=== PATIENT | female | born 1985 | race Hispanic/Latino ===

== ENCOUNTER 2017-07-05 19:22 | Observation (INO) | payer OTHER ==
[~2017-07-05] VITALS: Ht 162.6 cm; Wt 85.3 kg
[2017-07-05 20:08] LABS: BASOPHILS # (AUTO) 0.1 (0.0-0.1); BASOPHILS % 0.5 % (0.0-1.0); EOSINOPHILS # (AUTO) 0.1 (0.0-0.4); EOSINOPHILS % 1.3 % (0.0-6.0); HEMATOCRIT 42.5 % (34.2-44.1); HEMOGLOBIN 14.2 g/dL (12.0-16.0); LYMPHOCYTES # (AUTO) 2.8 (1.0-3.2); LYMPHOCYTES % 28.9 % (18.0-39.1); MEAN CORPUSCULAR HEMOGLOBIN 30.8 pg (28-32); MEAN CORPUSCULAR HGB CONC 33.4 g/dL (31-35); MEAN CORPUSCULAR VOLUME 92.2 fL (81-99); MONOCYTES # (AUTO) 0.6 (0.2-0.8); MONOCYTES % 6.2 % (4.4-11.3); NEUTROPHILS % 62.8 % (38.7-80.0); PLATELET COUNT 251 x10e3/uL (140-360); RED BLOOD COUNT 4.61 x10e6/uL (3.6-5.1); RED CELL DISTRIBUTION WIDTH 12.7 % (11.7-14.4)
[2017-07-05 20:27] LABS: ALANINE AMINOTRANSFERASE 26 IU/L (0-55); ALBUMIN 4.3 g/dL (3.5-5.0); ALBUMIN/GLOBULIN RATIO 1.1 (0.8-2.0); ALKALINE PHOSPHATASE 71 IU/L (40-150); ANION GAP 15.7 mmol/L (8-16); BLOOD UREA NITROGEN 11 mg/dL (7-26); BUN/CREATININE RATIO 17 (6-25); CALCIUM 9.8 mg/dL (8.4-10.2); CARBON DIOXIDE 24 mmol/L (22-29); CHLORIDE 106 mmol/L (98-107); CREATININE, SERUM 0.66 mg/dL (0.57-1.11); EST GLOMERULAR FILTRATION RATE > 60 ML/MIN (60-); GLUCOSE 80 mg/dL (74-118); POTASSIUM 3.7 mmol/L (3.5-5.1); SODIUM 142 mmol/L (136-145)
[2017-07-05 21:02] LABS: BILIRUBIN,URINE NEGATIVE (NEGATIVE); CLARITY,URINE CLOUDY (CLEAR); COLOR,URINE YELLOW (YELLOW); KETONES,URINE NEGATIVE (NEGATIVE); LEUKOCYTE ESTERASE ,URINE 1+ (NEGATIVE); NITRITE,URINE NEGATIVE (NEGATIVE); URINE UROBILINOGEN 0.2 mg/dL (0.2 - 1)
[2017-07-05 21:04] LABS: PROTEIN,URINE DIPSTICK TRACE (NEGATIVE)
[2017-07-05 21:05] LABS: PREGNANCY TEST, URINE NEGATIVE (NEGATIVE)
[2017-07-05 21:22] LABS: BACTERIA,URINE MODERATE /HPF; EPITHELIAL CELLS,URINE FEW /LPF; RBC,URINE >50 /HPF (0-5)
[2017-07-06] MEDS ORDERED: KETOROLAC TROMETHAMINE 30 MG/ML VIAL IV STA (00:14)
[2017-07-06] MEDS ORDERED: ONDANSETRON HCL INJ 2 MG/ML VIAL IV STA (00:14)
[2017-07-06] MEDS ORDERED: CEFTRIAXONE SOD 1 GM VIAL IV STA (00:14)
[2017-07-06] MEDS ORDERED: SODIUM CHLORIDE 0.9% 1000ML 1,000 ML IV ONE (00:15)
--- NOTE | 2017-07-06 01:07 | Diagnostic Imaging Report ---
EXAM: CT Abdomen and Pelvis WITHOUT contrast INDICATION: Flank pain, renal stone COMPARISON: None. TECHNIQUE: Abdomen and pelvis were scanned utilizing a multidetector helical scanner from the lung base to the pubic symphysis without administration of IV contrast. Absence of intravenous contrast decreases sensitivity for detection of focal lesions and vascular pathology. Coronal and sagittal reformations were obtained. Stone protocol is performed. IV CONTRAST: None. ORAL CONTRAST: None RADIATION DOSE: Total DLP: 646.23 mGy*cm Estimated effective dose: (DLP x 0.015 x size factor) mSv COMPLICATIONS: None FINDINGS: LINES and TUBES: None. LOWER THORAX: Unremarkable HEPATOBILIARY: No focal hepatic lesions. No biliary ductal dilation. GALLBLADDER: There are cholecystectomy clips. SPLEEN: No splenomegaly. PANCREAS: No focal masses or ductal dilatation. ADRENALS: No adrenal nodules KIDNEYS/URETERS: Severe right hydronephrosis hyperdense bilateral renal extremities suggestive of nephrocalcinosis. 8 mm stone in the distal right ureter resulting in obstruction of the right renal collecting system. Multiple bilateral stones are visualized in the renal calyces ranging between 2 and 8 mm. GI TRACT: No abnormal distention, wall thickening, or evidence of bowel obstruction. Appendix is normal. PELVIC ORGANS/BLADDER: Unremarkable. LYMPH NODES: No lymphadenopathy. VESSELS: Unremarkable. PERITONEUM / RETROPERITONEUM: No free air or fluid. BONES: Unremarkable. SOFT TISSUES: Unremarkable. IMPRESSION: 1. Obstructive 8 mm stone in the distal right ureter just above the UVJ resulting in severe right hydronephrosis. 2. Additional bilateral nephrolithiasis are present as described above. Signed by: Dr. Junior Alvarez M.D. on 07/06/2017 1:03 AM
[2017-07-06] MEDS ORDERED: HYDROMORPHONE 1MG/1ML INJ IV PRN (03:00)
[2017-07-06] MEDS ORDERED: ONDANSETRON HCL INJ 2 MG/ML VIAL IV PRN (03:00)
[2017-07-06] MEDS ORDERED: ACETAMINOPHEN 325 MG TAB PO PRN (03:00)
[2017-07-06] MEDS ORDERED: CEFTRIAXONE SOD 1 GM VIAL IV SCH (03:00)
[2017-07-06] MEDS: SODIUM CHLORIDE 0.9% 1000ML 1,000 ML IV SCH ×2 (03:26→10:54)
[2017-07-06 03:45] VITALS: BP 96/58
[2017-07-06 04:02] VITALS: BP 101/58
[2017-07-06 04:03] VITALS: BP 101/58
[2017-07-06 07:00] VITALS: BP 102/62
--- NOTE | 2017-07-06 07:43 | Consultation ---
DATE OF CONSULTATION: July 06, 2017 REASON FOR CONSULTATION: Right renal stone, 8 mm. HISTORY OF PRESENT ILLNESS: Mrs. Lakhani is a 32-year-old female with no prior history of stones admitted with 10/10 right-sided severe flank pain. No fevers. No chills. Positive nausea. No vomiting. PAST MEDICAL HISTORY: Denied. MEDICATIONS: Please see MAR. ALLERGIES: NKDA. SOCIAL HISTORY: Nonsmoker and nondrinker. FAMILY HISTORY: Denied urologic stones or malignancies. REVIEW OF SYSTEMS: Noncontributory and positive to problems as mentioned above. PHYSICAL EXAMINATION GENERAL: A young female in no acute distress. VITALS: Temperature 97.4, pulse 70, respirations 18, blood pressure 101/88. HEENT: Sclerae anicteric. NECK: Supple. BACK: Without costovertebral angle tenderness bilaterally. ABDOMEN: Soft. It is nontender. It is nondistended. There is no palpable mass. No palpable hernias. No palpable groin lymphadenopathy. : Normal female external genitalia. EXTREMITIES: Without edema. Moves all 4 extremities. PSYCH: Alert and mood appropriate. SKIN: Intact. Normal color. PERTINENT LABORATORY DATA: CT scan with a 8 mm right distal ureteral stone. Right-sided hydronephrosis, severe. Urinalysis with 10-20 whites and 50-100 reds. Sodium 142, potassium 3.3, chloride 106, bicarb 24, BUN 11, creatinine 0.66, glucose 80. Hemoglobin 14, hematocrit 42, platelet count of 215,000, and white cell count 8590. IMPRESSION 1. Right ureteral stone. 2. Urinary tract infection. 3. Microscopic hematuria. 4. Renal colic. 5. Hydronephrosis. 6. Hypotension. PLAN: Supportive care. The patient will need a stent for likely obstructed infected system. Thank you for allowing me to participate in the care of your patient. Will be following along with you. Job#: [id number] LORIE
[2017-07-06] MEDS ORDERED: IOPAMIDOL 610MG/1ML 300 MG/ML VIAL IV ONE (08:15)
--- NOTE | 2017-07-06 10:22 | Operative Report ---
DATE OF PROCEDURE: July 06, 2017 PREOPERATIVE DIAGNOSES 1. Microscopic hematuria. 2. Right-sided hydronephrosis. POSTOPERATIVE DIAGNOSES 1. Microscopic hematuria. 2. Right-sided hydronephrosis. PROCEDURES 1. Cystourethroscopy with left ureteral catheterization. 2. Left retrograde pyelogram (entirely separate procedure for microscopic hematuria). 3. Cystourethroscopy with placement of right indwelling stent (entirely separate procedure for right hydronephrosis). 4. Supervision of fluoroscopy. 5. Interpretation of retrograde pyelography. ANESTHESIA: General. ESTIMATED BLOOD LOSS: Minimal. COMPLICATIONS: None. INDICATIONS FOR PROCEDURE: Ms. Lakhani is a 32-year-old female with obstructed and infected stone. She and I had a long discussion about alternatives, risks and benefits including doing nothing, stent placement and nephrostomy. She voiced understanding of the options, alternatives, risks and benefits. She voiced understanding that the stent is a temporary indwelling device, and it was must be removed. Failure to do so could lead to encrustation, infection, inflammation, atrophy, loss of the kidney, and even . She elected to proceed. PROCEDURE IN DETAIL: After informed consent was obtained, the patient was taken to the operating suite and placed supine on the operating table and underwent general anesthesia by the anesthesia service. She was then placed in the dorsal lithotomy position and sterilely prepped and draped in the standard fashion for cystoscopy. A 22.5-Nauruan cystoscope was inserted per urethra. It was noted to pass. The bladder revealed no tumors and no stones. Both ureteral orifices were within normal anatomic location and position. Bilateral retrograde pyelograms were performed,. The left was normal. The right revealed a very large 8 mm distal ureteral calculus with proximal hydronephrosis. A right ureteral stent was deployed with the coil in the renal pelvis and a coil in the bladder. The patient's bladder was drained. She was awakened from anesthesia and transported to the recovery room in excellent condition. SUPERVISION OF FLUOROSCOPY, INTERPRETATION OF RETROGRADE URETERAL PYELOGRAPHY: I was present throughout the entire procedure and I supervised the use of fluoroscopy. There was no radiologist present at any time during this procedure. Attention was turned toward the left and right ureteral orifices, catheterized with a 5-Nauruan open-ended catheter. Retrograde pyelogram was performed revealing left-sided ureter, delicate pelviceal systems. A right-sided 8 mm distal ureteral calculus and proximal hydronephrosis. Postoperative views on the right side revealed the stent in good position. IMPRESSION 1. An 8 mm right distal ureteral calculus. 2. Right hydronephrosis. 3. Right ureteral stent in adequate position. 4. Normal left retrograde pyelograms. Job#: [id number] RI
[2017-07-06 12:00] VITALS: BP 99/55
--- NOTE | 2017-07-06 12:42 | History and Physical ---
CHIEF COMPLAINT: Abdominal pain. HISTORY OF PRESENT ILLNESS: Ms. Lakhani is a 32-year-old female with no medical history, presented with right-sided severe abdominal pain. She underwent a CT of the abdomen and pelvis in the emergency room, which showed evidence of obstructive 8 mm stone in the distal right ureter just above the UV junction, resulting in right hydronephrosis, and additional bilateral nephrolithiasis was present. Urology was consulted, and patient underwent cystourethroscopy with left ureteral catheterization and left retrograde pyelogram and placement of right indwelling stent. Patient is doing well, denying any abdominal pain, nausea or vomiting. REVIEW OF SYSTEMS GENERAL: Was having abdominal pain. Denies any fever or chills. HEAD: Denies any head trauma or head injury. ENT: Denies any earache, nosebleed, throat pain. CVS: Denies any chest pain. RESPIRATORY: Denies any shortness of breath. REMAINDER: The rest of the review of systems are negative except as in the HPI. PAST MEDICAL HISTORY: None. PAST SURGICAL HISTORY: Cholecystectomy. FAMILY AND SOCIAL HISTORY: She lives with her . She works as a systems applications programming lead. She has 3 children. PHYSICAL EXAMINATION VITAL SIGNS: Temperature 97.4, pulse of 70, blood pressure of 102/62, respiratory rate of 18, O2 sat 97% on room air. SKIN: Warm and dry. GENERAL APPEARANCE: She is a young female not in any obvious distress. She is awake and alert, following command and responding to questions appropriately. HEENT: Head atraumatic, normocephalic. Pupils are reactive. NECK: Supple. No JVD. Thyroid not enlarged. CHEST: Clear to auscultation bilaterally. HEART: S1/S2 audible. ABDOMEN: Soft, nontender, nondistended. EXTREMITIES: No clubbing, cyanosis or edema. NEUROLOGICALLY: Awake and alert. LABS: White count of 9000, hemoglobin 14.2, platelets 251. Chemistry: Sodium 142, potassium 3.7, chloride 106, BUN 11, creatinine 0.6. AST, ALT normal. Urine culture in progress. ASSESSMENT/PLAN 1. Nephrolithiasis and obstructive ureteral stone status post stent placement. Patient is doing very well now. Continue the current treatment. 2. IV analgesics for pain control. 3. Continue IV Rocephin. Patient will be discharged when okay with Urology. Job#: [id number] EV
--- NOTE | 2017-07-06 14:36 | Consultation ---
DATE OF CONSULTATION: NO DICTATION, length 0 minutes 2 seconds. Job#: [id number] EV
[2017-07-06 16:00] VITALS: BP 108/60
[2017-07-06] MEDS ORDERED: DEXAMETHASONE SOD PHOS INJ 4 MG/ML VIAL ONE (18:16)
[2017-07-06] MEDS ORDERED: PROPOFOL IV EMULSION 10 MG/ML 20 ML VIAL ONE (18:16)
[2017-07-06] MEDS ORDERED: ONDANSETRON HCL INJ 2 MG/ML VIAL ONE (18:16)
[2017-07-06] MEDS ORDERED: KETOROLAC TROMETHAMINE 30 MG/ML VIAL ONE (18:16)
[2017-07-06] MEDS ORDERED: SEVOFLURANE INHAL SOLN 250 ML PEN BTL ONE (18:16)
[2017-07-07] MEDS ORDERED: CEFTRIAXONE SOD 1 GM VIAL IV SCH (01:00)
== END 2017-07-06 18:14 | disposition home or self-care (01) ==
LOC: ER 19:22 → IMCU 07-06 03:05
PROVIDERS: ADMIT Internal Medicine; ATTEND Internal Medicine
DX: N13.6 Pyonephrosis (principal); N23 Unspecified renal colic; I95.9 Hypotension, unspecified; R31.29 Other microscopic hematuria
CPT/HCPCS: 36415; 52332; 74176; 74420; 80053; 81001; 81025; 85025; 87086; 87186; 99284; C1758; C1874; G0378; J0696; J1100; J1885; J2405; J7030; Q9967

== ENCOUNTER 2019-12-11 09:37 | Emergency (ER) | payer OTHER ==
[~2019-12-11] VITALS: Ht 162.6 cm; Wt 85.3 kg
--- OUTSIDE RECORDS SUMMARY | 2019-12-11 09:40 | XMS REPORT | Continuity of Care Document ---
Author Author [facility] Organization [facility] Address [address] [place] [address] Phone Unavailable Care Team Providers Care Sharepoint Application Architect Name Role Phone Asked, Pcp No PCP Unavailable Jose Eduardo WHITE Attphycarlos Unavailable Problems Condition Name Condition Details Condition Category Status Onset Date Resolution Date Last Treatment Date Treating Clinician Comments Source Acute pain of right shoulder Acute pain of right shoulder Disease Active 2017-12-07 00:00:00 Denny Garcia Allergies, Adverse Reactions, Alerts This patient has no known allergies or adverse reactions. Social History Social Habit Start Date Stop Date Quantity Comments Source Sex Assigned At Tomás mixon Radha Alcohol intake 2017-12-07 00:00:00 2017-12-07 00:00:00 Current drinker of alcohol (finding) Denny Garcia Alcohol Comment 2017-12-07 00:00:00 2017-12-07 00:00:00 Occasion al drinker nor regular drinking Denny Garcia Smoking Status Start Date Stop Date Source Never smoker Denny chang Medications This patient has no known medications. Procedures This patient has no known procedures. Plan of Care Planned Activity Planned Date Details Comments Source Future Scheduled Test 2020-01-31 00:00:00 INFLUENZA VACCINE [code = INFLUENZA VACCINE] Denny Garcia Future Scheduled Test 2005-01-14 00:00:00 Screening for beau gnant neoplasm of cervix (procedure) [code = 548518813] Denny chang Results Test Description Test Time Test Comments Results Result Comments Source CT ABDOMEN/PELVIS [facility] [address] [place], [place] [address] Patient Name: DEJA LAKHANI MR #: [id number] : 1985 Age/Sex: 32/F Req #: [id number] Adm Physician: Ordered by: JOEY WHITE MD Report #: [id number] Location: ER Room/Bed: Procedure: [id number] CT/CT ABDOMEN/PELVIS WO Exam Date: 07/06/17 Exam Time: 0027 REPORT STATUS: Signed EXAM: CT Abdomen and Pelvis WITHOUT contrast INDICATION: Flank pain, renal stone COMPARISON: None. TECHNIQUE: Abdomen and pelvis were scanned utilizing a multidetector helical scanner from the lung base to the pubic symphysis without administration of IV contrast. Absence of intravenous contrast decreases sensitivity for detection of focal lesions and vascular pathology. Coronal and sagittal reformations were obtained. Stone protocol is performed. IV CONTRAST: None. ORAL CONTRAST: None RADIATION DOSE: Total DLP: 646.23 mGy*cm Estimated effective dose: (DLP x 0.015 x size factor) mSv COMPLICATIONS: None FINDINGS: LINES and TUBES: None. LOWER THORAX: Unremarkable HEPATOBILIARY: No focal hepatic lesions. No biliary ductal dilation. GALLBLADDER: There are cholecystectomy clips. SPLEEN: No splenomegaly. PANCREAS: No focal masses or ductal dilatation. ADRENALS: No adrenal nodules KIDNEYS/URETERS: Severe right hydronephrosis hyperdense bilateral renal extremities suggestive of nephrocalcinosis. 8 mm stone in the distal right ureter resulting in obstruction of the right renal collecting system. Multiple bilateral stones are visualized in the renal calyces ranging between 2 and 8 mm. GI TRACT: No abnormal distention, wall thickening, or evidence of bowel obstruction. Appendix is normal. PELVIC ORGANS/BLADDER: Unremarkable. LYMPH NODES: No lymphadenopathy. VESSELS: Unremarkable. PERITONEUM / RETROPERITONEUM: No free air or fluid. BONES: Unremarkable. SOFT TISSUES: Unremarkable. IMPRESSION: 1. Obstructive 8 mm stone in the distal right ureter just above the UVJ resulting in severe right hydronephrosis. 2. Additional bilateral nephrolithiasis are present as described above. Signed by: Dr. Junior Alvarez M.D. on 07/06/2017 1:03 AM Dictated By: JUNIOR ARITA MD 2 Transcribed By: KARLA on 07/06/17102 COPY TO: JOEY WHITE MD
--- OUTSIDE RECORDS SUMMARY | 2019-12-11 09:40 | XMS REPORT | Clinical Summary ---
Author Author [facility] Address Unknown Phone Unavailable Care Team Providers Care Window Draper Name Role Phone Asked, No Pcp PCP Unavailable Allergies No Known Allergies Medications Not on file Active Problems Problem Noted Date Acute pain of right shoulder 12/07/2017 Social History Date Tobacco Use Types Packs/Day Years Used Never Smoker Smokeless Tobacco: Never Used Drinks/Week oz/Week Comments Alcohol Use 1 Cans of beer Occasional drinker nor regul ar drinking Yes Sex Assigned at Date Recorded Not on file Industry Job Start Date Occupation Not on file Not on file Not on file Travel End Travel History Travel Start No recent travel history available. Last Filed Vital Signs Not on file Plan of Treatment Health Maintenance Due Date Last Done Comments CERVICAL CANCER SCREENING 01/14/2005 INFLUENZA VACCINE 01/31/2020 03/02/2011 Results Not on fileafter 12/10/2018 Insurance Type Payer Benefit Subscriber ID Effective Phone Address Plan / Dates Group HMO AETNA AETNA xxxxxxxxxx 2009-P HMO,POS,EP resent O, MC/EC Advance Directives For more information, please contact: [phone] Patient Research Asst Explanation Type Date Recorded Advance Directives, Living Will and Medical Power of Biosecurity Officer
[2019-12-11] MEDS ORDERED: ONDANSETRON HCL INJ 2MG/ML 2ML 2 MG/ML VIAL IV STA (09:51)
[2019-12-11] MEDS ORDERED: SODIUM CHLORIDE 0.9% 1000ML 1,000 ML IV STA (09:51)
[2019-12-11] MEDS ORDERED: PANTOPRAZOLE 40 MG 10ML VIAL IV STA (09:51)
[2019-12-11] MEDS ORDERED: DICYCLOMINE HCL 20 MG/2 ML VIAL IM ONE (10:00)
[2019-12-11 10:04] LABS: BASOPHILS % 0.3 % (0.0-1.0); HEMOGLOBIN 13.6 g/dL (12.0-16.0); LYMPHOCYTES # (AUTO) 1.1 (1.0-3.2); LYMPHOCYTES % 8.3 % (18.0-39.1); MEAN CORPUSCULAR HEMOGLOBIN 30.2 pg (28-32); MEAN CORPUSCULAR HGB CONC 33.2 g/dL (31-35); MEAN CORPUSCULAR VOLUME 90.9 fL (81-99); MONOCYTES # (AUTO) 0.4 (0.2-0.8); MONOCYTES % 2.8 % (4.4-11.3); NEUTROPHILS # (AUTO) 12.1 (2.1-6.9); NEUTROPHILS % 88.2 % (38.7-80.0); PLATELET COUNT 267 x10e3/uL (140-360); RED BLOOD COUNT 4.51 x10e6/uL (3.6-5.1); RED CELL DISTRIBUTION WIDTH 12.5 % (11.7-14.4)
[2019-12-11 10:24] LABS: CLARITY,URINE CLEAR (CLEAR); COLOR,URINE YELLOW (YELLOW)
[2019-12-11 10:25] LABS: BILIRUBIN,URINE NEGATIVE (NEGATIVE); KETONES,URINE 2+ (NEGATIVE); LEUKOCYTE ESTERASE ,URINE NEGATIVE (NEGATIVE); NITRITE,URINE NEGATIVE (NEGATIVE); PROTEIN,URINE DIPSTICK NEGATIVE (NEGATIVE); URINE UROBILINOGEN 0.2 mg/dL (0.2 - 1)
[2019-12-11 10:27] LABS: PREGNANCY TEST, URINE POSITIVE (NEGATIVE)
[2019-12-11 10:30] LABS: ALANINE AMINOTRANSFERASE 16 IU/L (0-55); ALBUMIN/GLOBULIN RATIO 1.1 (0.8-2.0); ALKALINE PHOSPHATASE 80 IU/L (40-150); AMYLASE 54 U/L (25-125); BLOOD UREA NITROGEN 11 mg/dL (7-26); BUN/CREATININE RATIO 13 (6-25); CALCIUM 9.4 mg/dL (8.4-10.2); CARBON DIOXIDE 21 mmol/L (22-29); CHLORIDE 104 mmol/L (98-107); CREATININE, SERUM 0.83 mg/dL (0.57-1.11); EST GLOMERULAR FILTRATION RATE > 60 ML/MIN (60-); GLUCOSE 107 mg/dL (74-118); LIPASE 14 U/L (8-78); MAGNESIUM 1.9 MG/DL (1.3-2.1); SODIUM 137 mmol/L (136-145)
[2019-12-11 10:34] LABS: BACTERIA,URINE MODERATE /HPF; EPITHELIAL CELLS,URINE FEW /LPF; RBC,URINE 0-5 /HPF (0-5)
[2019-12-11] MEDS ORDERED: CEFTRIAXONE SOD 1 GM/NS 50 ML 50 ML IV ONE (13:15)
--- NOTE | 2019-12-11 13:15 | Emergency Department Note ---
History of Present Illnes History of Present Illness Chief Complaint: Abdominal Complaints History of Present Illness This is a 34 year old female PATIENT IN FROM HOME WITH COMPLAINTS OF RIGHT SIDED ABDOMINAL PAIN STARTING TODAY; PATIENT STATES SUNDAY SHE STARTED WITH NAUSEA, SUNDAY SHE HAD DIARRHEA, AND LAST NIGHT SHE STARTED VOMITING. RATES ABDOMINAL PAIN 12/09. Historian: Patient Arrival Mode: Car Traffic Control Supervisor Required: No Onset (how long ago): day(s) (4 DAYS) Location: RIGHT ABD Quality: CRAMPY Radiation: Reports non-radiation Severity: mild Onset quality: gradual Timing of current episode: intermittent Progression: waxing and waning Chronicity: new Context: Denies recent illness Relieving factors: none Exacerbating factors: none Associated symptoms: Reports denies other symptoms Past Medical/Family History Physician Review I have reviewed the patient's past medical and family history. Any updates have been documented here. Past Medical History Recent Fever: No Clinical Suspicion of Infectio: No New/Unexplained Change in Ment: No Past Medical History: Kidney Stones Past Surgical History: Cholecysctectomy Other Surgery: LITHOTRIPSY Social History Smoking Cessation: Never Smoker Counseling Performed: No Alcohol Use: Occasional Any Illegal Drug Use: No TB Exposure/Symptoms: No Physically hurt or threatened: No Family History Family history of heart diseas: No Other Last Tetanus: OOD Any Pre-Existing Lines (PICC,: No Is patient up to date on immun: Yes Last Flu: unknown Last Pneumovax: none Review of Systems Review of Systems Constitutional: Reports no symptoms EENTM: Reports no symptoms Cardiovascular: Reports no symptoms Respiratory: Reports no symptoms Gastrointestinal: Reports abdominal pain, Reports diarrhea, Reports nausea, Reports vomiting Genitourinary: Reports no symptoms Musculoskeletal: Reports no symptoms Integumentary: Reports no symptoms Neurological: Reports no symptoms Psychological: Reports no symptoms Endocrine: Reports no symptoms Hematological/Lymphatic: Reports no symptoms Physical Exam Related Data Allergies: Coded Allergies: No Known Allergies (Unverified , 07/05/17) Triage Vital Signs Vital Signs Date Time Temp Pulse Resp B/P (MAP) Pulse Ox O2 Delivery O2 Flow Rate FiO2 12/11/19 09:42 98.3 86 16 131/88 99 Physical Exam CONSTITUTIONAL Constitutional: Reports well-developed, Reports well-nourished HENT HENT: Reports normocephalic, Reports atraumatic, Reports oropharynx clear/moist, Reports nose normal HENT L/R: Reports left ext ear normal, Reports right ext ear normal EYES Eyes: Reports PERRL, Reports conjunctivae normal NECK Neck: Reports ROM normal PULMONARY Pulmonary: Reports effort normal, Reports breath sounds normal CARDIOVASCULAR Cardiovascular: Reports regular rhythm, Reports heart sounds normal, Reports capillary refill normal, Reports normal rate GASTROINTESTINAL Abdominal: Reports soft, Reports nontender, Reports bowel sounds normal; Denies tender, Denies guarding, Denies mass, Denies rebound, Denies left CVA tenderness, Denies right CVA tenderness GENITOURINARY Genitourinary: Reports exam deferred SKIN Skin: Reports warm, Reports dry MUSCULOSKELETAL Musculoskeletal: Reports ROM normal NEUROLOGICAL Neurological: Reports alert, Reports oriented x 3, Reports no gross motor or sensory deficits PSYCHOLOGICAL Psychological: Reports mood/affect normal, Reports judgement normal Results Laboratory Result Diagram: 12/11/1949 12/11/19 0948 Laboratory Laboratory Tests Test 12/11/19 09:48 12/11/19 09:45 White Blood Count 13.75 x10e3/uL (4.8-10.8) Red Blood Count 4.51 x10e6/uL (3.6-5.1) Hemoglobin 13.6 g/dL (12.0-16.0) Hematocrit 41.0 % (34.2-44.1) Mean Corpuscular Volume 90.9 fL (81-99) Mean Corpuscular Hemoglobin 30.2 pg (28-32) Mean Corpuscular Hemoglobin Concent 33.2 g/dL (31-35) Red Cell Distribution Width 12.5 % (11.7-14.4) Platelet Count 267 x10e3/uL (140-360) Neutrophils (%) (Auto) 88.2 % (38.7-80.0) Lymphocytes (%) (Auto) 8.3 % (18.0-39.1) Monocytes (%) (Auto) 2.8 % (4.4-11.3) Eosinophils (%) (Auto) 0.0 % (0.0-6.0) Basophils (%) (Auto) 0.3 % (0.0-1.0) Neutrophils # (Auto) 12.1 (2.1-6.9) Lymphocytes # (Auto) 1.1 (1.0-3.2) Monocytes # (Auto) 0.4 (0.2-0.8) Eosinophils # (Auto) 0.0 (0.0-0.4) Basophils # (Auto) 0.0 (0.0-0.1) Absolute Immature Granulocyte (auto 0.06 x10e3/uL (0-0.1) Urine Color Yellow (YELLOW) Urine Clarity Clear (CLEAR) Urine pH 7 (5 - 7) Urine Specific [place] 1.025 (1.010-1.025) Urine Protein Negative (NEGATIVE) Urine Glucose (UA) Negative (NEGATIVE) Urine Ketones 2+ (NEGATIVE) Urine Blood Negative (NEGATIVE) Urine Nitrite Negative (NEGATIVE) Urine Bilirubin Negative (NEGATIVE) Urine Urobilinogen 0.2 mg/dL (0.2 - 1) Urine Leukocyte Esterase Negative (NEGATIVE) Urine RBC 0-5 /HPF (0-5) Urine WBC 6-10 /HPF (0-5) Urine Epithelial Cells Few /LPF (NONE) Urine Bacteria Moderate /HPF (NONE) Urine Test Positive (NEGATIVE) Sodium Level 137 mmol/L (136-145) Potassium Level 4.0 mmol/L (3.5-5.1) Chloride Level 104 mmol/L (98-107) Carbon Dioxide Level 21 mmol/L (22-29) Anion Gap 16.0 mmol/L (8-16) Blood Urea Nitrogen 11 mg/dL (7-26) Creatinine 0.83 mg/dL (0.57-1.11) Estimat Glomerular Filtration Rate > 60 ML/MIN (60-) BUN/Creatinine Ratio 13 (6-25) Glucose Level 107 mg/dL (74-118) Calcium Level 9.4 mg/dL (8.4-10.2) Magnesium Level 1.9 MG/DL (1.3-2.1) Total Bilirubin 0.6 mg/dL (0.2-1.2) Aspartate Amino Transf (AST/SGOT) 16 IU/L (5-34) Alanine Aminotransferase (ALT/SGPT) 16 IU/L (0-55) Alkaline Phosphatase 80 IU/L (40-150) Total Protein 7.6 g/dL (6.5-8.1) Albumin 4.0 g/dL (3.5-5.0) Globulin 3.6 g/dL (2.3-3.5) Albumin/Globulin Ratio 1.1 (0.8-2.0) Amylase Level 54 U/L (25-125) Lipase 14 U/L (8-78) Human Chorionic Gonadotropin, Quant 88961.75 mIU/mL (0-10) Lab results reviewed: Yes Imaging Imaging results reviewed: Yes Impressions 6w1d viable IUP, heart rate 112 Assessment & Plan Medical Decision Making MDM CHECK CBC, CHEM, UPT, UA/CX, CT ABD/PELVIS - DDX INCLUDES UTI, KIDNEY STONE, , DEHYDRATION, ELECTROLYTE ABNL, RENAL INSUFF UPT POSITIVE - CT CANCELLED AND US ORDERED, QUANT HCG ORDERED Reassessment Reassessment pelvic rest, Macrobid, f/u ob pcp Assessment & Plan Final Impression: (1) (2) Vaginal bleeding (3) UTI (urinary tract infection) Depart Disposition: HOME, SELF-CARE Last Vital Signs Date Time Temp Pulse Resp B/P (MAP) Pulse Ox O2 Delivery O2 Flow Rate FiO2 12/11/19 10:04 84 16 101/74 100 12/11/19 09:42 98.3 Medications in the ED Pantoprazole Sodium 40 mg ONCE STAT IV Last administered on 12/11/19at 10:27; Admin Dose 40 MG; Start 12/11/19 at 09:51; Stop 12/11/19 at 10:28; Status DC Ondansetron HCl 4 mg ONCE STAT IV Last administered on 12/11/19 10:27; Admin Dose 4 MG; Start 12/11/19 at 09:51; Stop 12/11/19 at 10:28; Status DC Sodium Chloride 1,000 ml @ 0 mls/hr Q0M STAT IV Last administered on 12/11/19at 10:27; Admin Dose 1,000 MLS/HR; Start 12/11/19 at 09:51; Stop 12/11/19 at 10:28; Status DC Dicyclomine HCl 20 mg ONCE ONCE IM Last administered on 12/11/19at 10:27; Admin Dose 20 MG; Start 12/11/19 at 10:00; Stop 12/11/19 at 10:28; Status DC MADELIN HOFFMANN MD Dec 11, 2019 13:15
--- NOTE | 2019-12-11 14:00 | NUR ---
Call placed to radiology about the report for the ultrasound performed on the patient. They informed us that reports were not crossing over and that they were working on getting the reports emailed so that they could be printed and given to the ER department.
--- NOTE | 2019-12-16 12:01 | Diagnostic Imaging Report ---
EXAM: First Trimester Obstetric Pelvic Ultrasound INDICATION: , abdominal pain COMPARISON: None TECHNIQUE: Grayscale transverse and sagittal transabdominal and transvaginal images were obtained of the pelvis. Transvaginal imaging was medically necessary to better evaluate the endometrium, adnexa, and fetus. CLINICAL HISTORY: 34 year old A0 Last menstrual period: 11/04/2019 FINDINGS: Uterus Orientation: Retroflexed. Size: 7.9 x 5.6 x 6.9 cm, Normal. Mass: None Cervix: Normal. Gestational Sac: Location: Intrauterine Average sac diameter: 1.46 cm Estimated sonographic GA: 6 weeks and 1 day Appearance: Normal in contour Subchorionic hemorrhage: None Yolk sac: Normal Embryo/Fetus: [place] rump length: 0.32 cm Estimated sonographic GA: 6 weeks and 1 day Cardiac activity: 112 bpm Right ovary Size: 2.5 x 2.3 x 2.3 cm Mass/Cyst: None Left ovary Size: 2.6 x 1.7 x 2.1 cm Mass/Cyst: None Cul-de-sac: No free fluid IMPRESSION: 1. Viable intrauterine . 2. Estimated sonographic gestational age: 6 weeks 1 day Signed by: Joseph Ndiaye MD on 12/11/2019 1:20 PM
== END 2019-12-11 16:43 | disposition home or self-care (01) ==
LOC: ER 09:37
DX: O20.9 Hemorrhage in early pregnancy, unspecified (principal); O23.41 Unspecified infection of urinary tract in pregnancy, first trimester; R10.31 Right lower quadrant pain
CPT/HCPCS: 36415; 76817; 80053; 81001; 81025; 82150; 83690; 83735; 84702; 85025; 87086; 99284; C9113; J0500; J0696; J2405; J7030

== ENCOUNTER 2019-12-15 15:49 | Emergency (ER) | payer OTHER ==
[~2019-12-15] VITALS: Ht 162.6 cm; Wt 85.3 kg
--- NOTE | 2019-12-15 16:28 | Emergency Department Note ---
History of Present Illnes History of Present Illness Chief Complaint: Abdominal Complaints History of Present Illness This is a 34 year old female . Chief Complaint Comment STATES SHE WAS HERE THIS PAST THURS FOR INABILITY TO EAT AND N/V STATES SHE IS 6 WEEKS G 4 P 3 DX WITH UTI SENT HOME WITH RX FOR ABX BACK TODAY FOR N/V AND INABILITY TO EAT STATES SHE HAS NOT FINISHED HER COURSE OF ABX DENIES PAIN AT THIS TIME MD IN ROOM DURING TRIAGE Historian: Patient Arrival Mode: Car Car Deliverer Required: No Onset (how long ago): day(s) Severity: mild Onset quality: gradual Duration (how long): day(s) Timing of current episode: intermittent Progression: waxing and waning Past Medical/Family History Physician Review I have reviewed the patient's past medical and family history. Any updates have been documented here. Past Medical History Recent Fever: No Clinical Suspicion of Infectio: No New/Unexplained Change in Ment: No Past Medical History: Kidney Stones Past Surgical History: Cholecysctectomy Other Surgery: LITHOTRIPSY Other Last Tetanus: OOD Review of Systems Review of Systems Constitutional: Reports no symptoms EENTM: Reports no symptoms Cardiovascular: Reports no symptoms Respiratory: Reports no symptoms Gastrointestinal: Reports as per HPI, Reports nausea, Reports vomiting Genitourinary: Reports no symptoms Musculoskeletal: Reports no symptoms Integumentary: Reports no symptoms Neurological: Reports no symptoms Psychological: Reports no symptoms Endocrine: Reports no symptoms Hematological/Lymphatic: Reports no symptoms Physical Exam Related Data Allergies: Coded Allergies: No Known Allergies (Unverified , 07/05/17) Triage Vital Signs Vital Signs Date Time Temp Pulse Resp B/P (MAP) Pulse Ox O2 Delivery O2 Flow Rate FiO2 12/15/19 16:00 97.0 95 18 134/88 99 Vital signs reviewed: Yes Physical Exam CONSTITUTIONAL Constitutional: Present well-developed, Present well-nourished HENT HENT: Present normocephalic, Present atraumatic, Present oropharynx clear/moist, Present nose normal HENT L/R: Present left ext ear normal, Present right ext ear normal EYES Eyes: Reports PERRL, Reports conjunctivae normal NECK Neck: Present ROM normal PULMONARY Pulmonary: Present effort normal, Present breath sounds normal CARDIOVASCULAR Cardiovascular: Present regular rhythm, Present heart sounds normal, Present capillary refill normal, Present normal rate GASTROINTESTINAL Abdominal: Present soft, Present nontender, Present bowel sounds normal GENITOURINARY Genitourinary: Present exam deferred SKIN Skin: Present warm, Present dry MUSCULOSKELETAL Musculoskeletal: Present ROM normal NEUROLOGICAL Neurological: Present alert, Present oriented x 3, Present no gross motor or sensory deficits PSYCHOLOGICAL Psychological: Present mood/affect normal, Present judgement normal Assessment & Plan Medical Decision Making MDM 34-year-old female arrived to the ED with complaints of nausea vomiting, currently 6 weeks and 2 day . Patient states she was given Phenergan but is not getting complete relief is unable to take her antibiotics for her UTI. Patient chose to leave the emergency department prior to labwork and IV fluids. Patient was contacted and probably spells left at the number provided. Assessment & Plan Final Impression: (1) Hyperemesis (2) UTI (urinary tract infection) (3) Depart Disposition: HOME, SELF-CARE Last Vital Signs Date Time Temp Pulse Resp B/P (MAP) Pulse Ox O2 Delivery O2 Flow Rate FiO2 12/15/19 16:00 97.0 95 18 134/88 99 DIANNE MARTÍNEZ DO Dec 15, 2019 16:27
[2019-12-15 16:47] LABS: CLARITY,URINE CLEAR (CLEAR); COLOR,URINE YELLOW (YELLOW); KETONES,URINE >=160 (NEGATIVE); LEUKOCYTE ESTERASE ,URINE SMALL (NEGATIVE); NITRITE,URINE NEGATIVE (NEGATIVE); PROTEIN,URINE DIPSTICK 1+ (NEGATIVE)
[2019-12-15 16:48] LABS: BILIRUBIN,URINE SMALL (NEGATIVE); URINE UROBILINOGEN 0.2 mg/dL (0.2 - 1)
[2019-12-15 17:07] LABS: RBC,URINE 0-5 /HPF (0-5); WBC,URINE (MAN) 21-50 /HPF (0-5)
[2019-12-15 17:08] LABS: BACTERIA,URINE MANY /HPF; EPITHELIAL CELLS,URINE MANY /LPF
[2019-12-15] MEDS ORDERED: SODIUM CHLORIDE 0.9% 1000ML 1,000 ML IV STA (18:02)
[2019-12-15 18:19] LABS: BASOPHILS % 0.3 % (0.0-1.0); EOSINOPHILS % 0.2 % (0.0-6.0); HEMATOCRIT 41.9 % (34.2-44.1); HEMOGLOBIN 14.1 g/dL (12.0-16.0); LYMPHOCYTES # (AUTO) 1.6 (1.0-3.2); LYMPHOCYTES % 11.3 % (18.0-39.1); MEAN CORPUSCULAR HEMOGLOBIN 30.7 pg (28-32); MEAN CORPUSCULAR HGB CONC 33.7 g/dL (31-35); MEAN CORPUSCULAR VOLUME 91.3 fL (81-99); MONOCYTES # (AUTO) 0.8 (0.2-0.8); NEUTROPHILS # (AUTO) 11.3 (2.1-6.9); NEUTROPHILS % 81.8 % (38.7-80.0); PLATELET COUNT 292 x10e3/uL (140-360); RED BLOOD COUNT 4.59 x10e6/uL (3.6-5.1); RED CELL DISTRIBUTION WIDTH 12.5 % (11.7-14.4)
[2019-12-15 18:26] VITALS: BP 134/88
[2019-12-15 18:32] LABS: ALBUMIN 3.9 g/dL (3.5-5.0); ANION GAP 20.1 mmol/L (8-16); CALCIUM 9.6 mg/dL (8.4-10.2); CREATININE, SERUM 1.05 mg/dL (0.57-1.11); POTASSIUM 4.1 mmol/L (3.5-5.1)
== END 2019-12-15 18:58 | disposition home or self-care (01) ==
LOC: ER 15:49
DX: O26.91 Pregnancy related conditions, unspecified, first trimester (principal); O21.0 Mild hyperemesis gravidarum; O23.41 Unspecified infection of urinary tract in pregnancy, first trimester
CPT/HCPCS: 36415; 80053; 81001; 84702; 85025; 99283